=== PATIENT | male | born 1980 | race Caucasian/White ===

== ENCOUNTER 2021-01-18 11:39 | Inpatient (IN) ==
[2021-01-18] MEDS ORDERED: Dextrose Gel 15 GM/37.5 ML TUBE PO PRN ×2 (15:59)
[2021-01-18] MEDS ORDERED: *HR* Dextrose 50 % in Water (Vial) 50 ML VIAL IVP PRN (15:59)
[2021-01-18] MEDS ORDERED: D5% in Water 1,000 ML IVC PRN (15:59)
[2021-01-18] MEDS ORDERED: Ringers Solution, Lactated 1,000 ML IVC SCH (15:59)
[2021-01-18 16:23] LABS: Amorphous Sediment,Urine Few per hpf (None-Few); Bilirubin,Urine Negative (Negative); Blood,Urine Moderate (Negative); Clarity,Urine Turbid (Clear); Color,Urine Yellow (Yellow); Glucose,Urine (UA) Normal (Normal); Granular Casts,Urine Few per lpf (None Seen); Hyaline Casts,Urine Few per lpf (None Seen); Ketones,Urine 20 mg/dL (Negative); Leukocyte Esterase,Urine Negative (Negative); Mucus,Urine Few per lpf (None-Few); Nitrite,Urine Negative (Negative); PH,Urine 5.5 pH Units (5.0-8.0); Protein,Urine 50 mg/dL (Neg-Trace); RBC,Urine 0-3 per hpf (0-3); Specific Gravity,Urine 1.021 (1.010-1.025); Urobilinogen,Urine Normal (Normal); WBC,Urine 0-3 per hpf (0-3)
[2021-01-18 16:39] LABS: VBG HCO3 17 mEq/L (21-27); VBG PCO2 35 mmHg (41-51); VBG PH 7.28 pH Units (7.32-7.42); VBG PO2 76 mmHg (25-50)
[2021-01-18 16:44] LABS: Amphetamine Screen,Urine Positive ng/mL (Cutoff=1000); Barbiturate Screen,Urine Negative ng/mL (Cutoff=200); Benzodiazepines Screen,Urine Negative ng/mL (Cutoff=200); Cannabinoid Screen,Urine Negative ng/mL (Cutoff = 50); Cocaine Screen,Urine Negative ng/mL (Cutoff= 300); Opiate Screen,Urine Negative ng/mL (Cutoff=300); Phencyclidine Screen,Urine Negative ng/mL (Cutoff=25)
[2021-01-18] MEDS ORDERED: Ondansetron 4 MG/2 ML VIAL IVP PRN (16:49)
[2021-01-18] MEDS ORDERED: Naloxone 0.4 MG/ML INJ IVP PRN (16:49)
[2021-01-18] MEDS ORDERED: Vancomycin 1 EACH in 0.9 % Sodium Chloride 250 ML IVPB PRN (17:00)
[2021-01-18 17:10] LABS: Thyroid Stimulating Hormone 0.997 mcIU/mL (0.340-5.600)
[2021-01-18 17:14] LABS: Hepatitis B Surface Antigen Nonreactive (Nonreactive)
[2021-01-18] MEDS ORDERED: Sodium Bicarbonate 75 MEQ in 0.45 % Sodium Chloride 1,000 ML IVC SCH (17:30)
[2021-01-18 17:44] LABS: Hepatitis B Core IgM Nonreactive (Nonreactive)
[2021-01-18 17:45] LABS: Hepatitis A Antibody IgM Nonreactive (Nonreactive)
[2021-01-18] MEDS: Piperacillin/Tazobactam 3.375 GM in 0.9 % Sodium Chloride Mini Bag 100 ML IVPB SCH (17:58)
[2021-01-18 19:14] LABS: Hepatitis C Virus Antibody Reactive (Nonreactive)
[2021-01-19] MEDS: Piperacillin/Tazobactam 3.375 GM in 0.9 % Sodium Chloride Mini Bag 100 ML IVPB SCH ×3 (00:51→16:25)
[2021-01-19 09:14] LABS: Basophils % 0.2 %; Eosinophils # 0.1 K/mcL (0.0-0.6); Hematocrit 35.3 % (37.5-50.1); Hemoglobin 11.8 g/dL (12.9-16.9); Immature Granulocytes % 0.5 % (0-4); Lymphocytes # 1.3 K/mcL (0.6-4.6); Lymphocytes % 11.4 %; Mean Corpuscular HGB Conc 33.4 g/dL (31.6-35.5); Mean Corpuscular Hemoglobin 29.1 pg (28.0-33.3); Mean Corpuscular Volume 86.9 fL (83.0-100.0); Mean Platelet Volume 9.8 fL (9.4-12.4); Monocytes # 0.6 K/mcL (0.0-1.3); Monocytes % 5.5 %; Neutrophils # 9.1 K/mcL (1.6-8.9); Platelet Count 183 K/mcL (140-400); Red Blood Count 4.06 M/mcL (4.19-5.50); Red Cell Distribution Width 13.4 % (11.5-14.5); Segmented Neutrophils % 81.4 %; White Blood Count 11.2 K/mcL (4.3-11.1)
[2021-01-19 09:34] LABS: Alanine Aminotransferase 67 Units/L (7-52); Albumin 3.1 g/dL (3.5-5.7); Albumin/Globulin Ratio 1.1 (1.1-2.2); Alkaline Phosphatase 73 Units/L (34-104); Aspartate Amino Transferase 82 Units/L (13-39); BUN/Creatinine Ratio 22 (6-26); Bilirubin,Total 0.8 mg/dL (0.3-1.0); Blood Urea Nitrogen 32 mg/dL (6-20); Calcium 7.8 mg/dL (8.6-10.3); Carbon Dioxide 24 mEq/L (23-29); Chloride 107 mEq/L (98-107); Globulin 2.8 g/dL (2.4-3.5); Glucose 113 mg/dL (70-105); Magnesium 2.5 mg/dL (1.6-2.6); Osmolality,Calculated 292 (280-300); Potassium 3.7 mEq/L (3.5-5.1); Sodium 137 mEq/L (136-145); Total Protein 5.9 g/dL (6.4-8.9); eGFR For African Americans > 60 (> 60); eGFR For Non-African Americans 55 (> 60)
[2021-01-19 10:17] LABS: Uric Acid 9.1 mg/dL (2.3-7.6)
[2021-01-19 12:00] LABS: Sodium, Urine 16.1 mEq/L
[2021-01-19] MEDS: Sodium Bicarbonate 75 MEQ in 0.45 % Sodium Chloride 1,000 ML IVC SCH (12:29)
[2021-01-19] MEDS: Acetaminophen 325 MG TABLET PO PRN ×2 (12:41→21:22)
[2021-01-20] MEDS: Piperacillin/Tazobactam 3.375 GM in 0.9 % Sodium Chloride Mini Bag 100 ML IVPB SCH ×4 (00:25→23:36)
[2021-01-20 05:04] LABS: Alanine Aminotransferase 60 Units/L (7-52); Albumin 3.2 g/dL (3.5-5.7); Albumin/Globulin Ratio 1.1 (1.1-2.2); Alkaline Phosphatase 74 Units/L (34-104); Aspartate Amino Transferase 57 Units/L (13-39); BUN/Creatinine Ratio 16 (6-26); Bilirubin,Total 0.7 mg/dL (0.3-1.0); Blood Urea Nitrogen 18 mg/dL (6-20); Calcium 8.4 mg/dL (8.6-10.3); Carbon Dioxide 27 mEq/L (23-29); Chloride 109 mEq/L (98-107); Creatine Kinase 917 Units/L (30-223); Globulin 2.8 g/dL (2.4-3.5); Glucose 131 mg/dL (70-105); Osmolality,Calculated 294 (280-300); Potassium 4.3 mEq/L (3.5-5.1); Sodium 140 mEq/L (136-145); eGFR For African Americans > 60 (> 60); eGFR For Non-African Americans > 60 (> 60)
[2021-01-20 05:15] LABS: Hematocrit 36.1 % (37.5-50.1); Hemoglobin 11.9 g/dL (12.9-16.9); Mean Corpuscular Hemoglobin 28.8 pg (28.0-33.3); Mean Corpuscular Volume 87.4 fL (83.0-100.0); Platelet Count 204 K/mcL (140-400); Red Blood Count 4.13 M/mcL (4.19-5.50); Red Cell Distribution Width 13.5 % (11.5-14.5); White Blood Count 7.5 K/mcL (4.3-11.1)
[2021-01-20 05:16] LABS: Basophils % 0.4 %; Eosinophils # 0.1 K/mcL (0.0-0.6); Eosinophils % 1.5 %; Immature Granulocytes % 0.3 % (0-4); Lymphocytes # 1.3 K/mcL (0.6-4.6); Lymphocytes % 17.2 %; Monocytes # 0.6 K/mcL (0.0-1.3); Monocytes % 7.5 %; Neutrophils # 5.5 K/mcL (1.6-8.9); Segmented Neutrophils % 73.1 %
[2021-01-20] MEDS ORDERED: 0.9 % Sodium Chloride 2,000 ML IVC SCH (16:45)
[2021-01-20] MEDS: Acetaminophen 325 MG TABLET PO PRN (17:33)
[2021-01-20] MEDS: Gabapentin 100 MG CAPSULE PO SCH (20:31)
[2021-01-21] MEDS: Acetaminophen 325 MG TABLET PO PRN ×2 (01:25→07:49)
[2021-01-21 05:04] LABS: Basophils % 0.5 %; Eosinophils # 0.1 K/mcL (0.0-0.6); Eosinophils % 1.7 %; Hemoglobin 11.8 g/dL (12.9-16.9); Immature Granulocytes % 0.6 % (0-4); Lymphocytes # 1.6 K/mcL (0.6-4.6); Lymphocytes % 19.1 %; Mean Corpuscular HGB Conc 32.8 g/dL (31.6-35.5); Mean Corpuscular Hemoglobin 28.9 pg (28.0-33.3); Mean Platelet Volume 9.6 fL (9.4-12.4); Monocytes # 0.6 K/mcL (0.0-1.3); Monocytes % 7.6 %; Neutrophils # 5.8 K/mcL (1.6-8.9); Platelet Count 207 K/mcL (140-400); Red Blood Count 4.09 M/mcL (4.19-5.50); Red Cell Distribution Width 13.4 % (11.5-14.5); Segmented Neutrophils % 70.5 %; White Blood Count 8.3 K/mcL (4.3-11.1)
[2021-01-21 05:21] LABS: BUN/Creatinine Ratio 13 (6-26); Blood Urea Nitrogen 14 mg/dL (6-20); Carbon Dioxide 26 mEq/L (23-29); Chloride 110 mEq/L (98-107); Creatine Kinase 338 Units/L (30-223); Glucose 125 mg/dL (70-105); Osmolality,Calculated 292 (280-300); Potassium 4.3 mEq/L (3.5-5.1); Sodium 140 mEq/L (136-145); eGFR For African Americans > 60 (> 60); eGFR For Non-African Americans > 60 (> 60)
[2021-01-21] MEDS: Piperacillin/Tazobactam 3.375 GM in 0.9 % Sodium Chloride Mini Bag 100 ML IVPB SCH (07:49)
[2021-01-21] MEDS: Gabapentin 100 MG CAPSULE PO SCH (07:49)
[2021-01-21] MEDS ORDERED: Lactobacillus 1 EACH CAP.SPRINK PO SCH (10:00)
[2021-01-21 10:06] VITALS: BP 132/80; PULSE 56; TEMP 97.9; O2SAT 97
== END 2021-01-21 12:12 | disposition left against medical advice (07) | DRG 469 ==
LOC: 2NNU → 3ANU 01-19 12:27 → SUATTDRO 01-19 14:44
PROVIDERS: ADMIT Internal Medicine; ATTEND General Practice

== ENCOUNTER 2021-02-23 18:29 | Inpatient (IN) ==
[2021-02-23] MEDS ORDERED: *HR* LORazepam 2 MG/ML VIAL IVP ONE (19:39)
[2021-02-23 20:43] LABS: Bilirubin,Urine Negative (Negative); Blood,Urine Negative (Negative); Clarity,Urine Clear (Clear); Color,Urine Light-Yellow (Yellow); Glucose,Urine (UA) Normal (Normal); Ketones,Urine Negative (Negative); Leukocyte Esterase,Urine Negative (Negative); Nitrite,Urine Negative (Negative); PH,Urine 6.5 pH Units (5.0-8.0); Protein,Urine Negative (Neg-Trace); Specific Gravity,Urine 1.015 (1.010-1.025); Urobilinogen,Urine Normal (Normal)
[2021-02-23 20:46] LABS: Basophils # 0.1 K/mcL (0.0-0.2); Basophils % 0.1 %; Eosinophils % 0.1 %; Hematocrit 48.9 % (37.5-50.1); Hemoglobin 16.7 g/dL (12.9-16.9); Immature Granulocytes % 3.6 % (0-4); Lymphocytes # 1.7 K/mcL (0.6-4.6); Lymphocytes % 3.5 %; Mean Corpuscular HGB Conc 34.2 g/dL (31.6-35.5); Mean Corpuscular Hemoglobin 29.3 pg (28.0-33.3); Mean Corpuscular Volume 85.9 fL (83.0-100.0); Mean Platelet Volume 9.4 fL (9.4-12.4); Monocytes # 2.1 K/mcL (0.0-1.3); Monocytes % 4.3 %; Platelet Count 324 K/mcL (140-400); Red Blood Count 5.69 M/mcL (4.19-5.50); Segmented Neutrophils % 88.4 %
[2021-02-23 20:47] LABS: Eosinophils # 0.1 K/mcL (0.0-0.6); Neutrophils # 43.7 K/mcL (1.6-8.9)
[2021-02-23 20:51] LABS: White Blood Count 49.4 K/mcL (4.3-11.1)
[2021-02-23 20:54] LABS: Amphetamine Screen,Urine Positive ng/mL (Cutoff=1000); Barbiturate Screen,Urine Negative ng/mL (Cutoff=200); Benzodiazepines Screen,Urine Negative ng/mL (Cutoff=200); Cannabinoid Screen,Urine Positive ng/mL (Cutoff = 50); Cocaine Screen,Urine Negative ng/mL (Cutoff= 300); Opiate Screen,Urine Negative ng/mL (Cutoff=300); Phencyclidine Screen,Urine Negative ng/mL (Cutoff=25)
[2021-02-23 21:05] LABS: Platelet Estimate Normal (Normal); Reactive Lymphocytes Present (Not Present)
[2021-02-23] MEDS ORDERED: 0.9 % Sodium Chloride 1,000 ML ONE (21:06)
[2021-02-23] MEDS ORDERED: 0.9 % Sodium Chloride 1,000 ML IV ONE (22:29)
[2021-02-23 22:37] LABS: Albumin 4.6 g/dL (3.5-5.7); Albumin/Globulin Ratio 1.1 (1.1-2.2); Bilirubin,Total 0.5 mg/dL (0.3-1.0); Calcium 10.4 mg/dL (8.6-10.3); Globulin 4.2 g/dL (2.4-3.5); Magnesium 4.2 mg/dL (1.6-2.6); Potassium 3.6 mEq/L (3.5-5.1); Thyroid Stimulating Hormone 2.516 mcIU/mL (0.340-5.600); Total Protein 8.8 g/dL (6.4-8.9); Troponin I 0.58 ng/mL (< 0.04)
[2021-02-24] MEDS ORDERED: Naloxone 0.4 MG/ML INJ IVP PRN (00:16)
[2021-02-24] MEDS ORDERED: Ondansetron 4 MG/2 ML VIAL IVP PRN (00:16)
[2021-02-24] MEDS ORDERED: 0.9 % Sodium Chloride 1,000 ML IVC SCH (00:30)
[2021-02-24 01:29] LABS: Basophils % 0.2 %
[2021-02-24 01:31] LABS: Basophils # 0.1 K/mcL (0.0-0.2); Hematocrit 41.6 % (37.5-50.1); Hemoglobin 13.8 g/dL (12.9-16.9); Immature Granulocytes % 1.8 % (0-4); Lymphocytes # 1.7 K/mcL (0.6-4.6); Mean Corpuscular HGB Conc 33.2 g/dL (31.6-35.5); Mean Corpuscular Hemoglobin 29.1 pg (28.0-33.3); Mean Corpuscular Volume 87.8 fL (83.0-100.0); Mean Platelet Volume 9.6 fL (9.4-12.4); Monocytes # 0.9 K/mcL (0.0-1.3); Monocytes % 2.6 %; Platelet Count 238 K/mcL (140-400); Red Blood Count 4.74 M/mcL (4.19-5.50); Segmented Neutrophils % 90.4 %
[2021-02-24 01:34] LABS: Neutrophils # 31.5 K/mcL (1.6-8.9); White Blood Count 34.8 K/mcL (4.3-11.1)
[2021-02-24 01:48] LABS: Albumin 3.8 g/dL (3.5-5.7); Albumin/Globulin Ratio 1.1 (1.1-2.2); Bilirubin,Total 0.5 mg/dL (0.3-1.0); Calcium 8.5 mg/dL (8.6-10.3); Globulin 3.4 g/dL (2.4-3.5); Potassium 4.2 mEq/L (3.5-5.1); Total Protein 7.2 g/dL (6.4-8.9)
[2021-02-24] MEDS ORDERED: *HR* Heparin 5,000 UNIT/ML VIAL IVP PRN ×2 (01:48)
[2021-02-24] MEDS ORDERED: *HR* Heparin 5,000 UNIT/ML VIAL IVP ONE (01:48)
[2021-02-24] MEDS ORDERED: Heparin 25,000UNIT/250ML 1/2NS 25,000 UNIT/250 ML IV.SOLN IVC SCH (02:00)
[2021-02-24] MEDS ORDERED: Aspirin 81 MG TAB.CHEW PO SCH (02:15)
[2021-02-24 02:41] LABS: Mean Platelet Volume 9.8 fL (9.4-12.4)
[2021-02-24 02:42] LABS: Hematocrit 42.9 % (37.5-50.1); Hemoglobin 14.1 g/dL (12.9-16.9); Mean Corpuscular HGB Conc 32.9 g/dL (31.6-35.5); Mean Corpuscular Hemoglobin 29.3 pg (28.0-33.3); Platelet Count 227 K/mcL (140-400); Red Blood Count 4.82 M/mcL (4.19-5.50)
[2021-02-24] MEDS: Ringers Solution, Lactated 1,000 ML IVC SCH ×6 (02:42→23:55)
[2021-02-24] MEDS: *HR* LORazepam 2 MG/ML VIAL IVP PRN ×4 (02:45→22:22)
[2021-02-24 02:46] LABS: White Blood Count 32.5 K/mcL (4.3-11.1)
[2021-02-24 02:56] LABS: Heparin anti-factor XA UFH < 0.04 IU/mL (0.30-0.70)
[2021-02-24 02:57] LABS: INR 1.2; Prothrombin Time 14.2 Seconds (9.4-12.1)
[2021-02-24] MEDS: Aspirin 81 MG TAB.CHEW PO SCH (03:05)
[2021-02-24 03:35] LABS: Adenovirus F 40/41 PCR Not detected (Not detect); Astrovirus PCR Not detected (Not detect); C.difficile Toxin A/B Gene PCR Not detected (Not detect); Campylobacter by PCR Not detected (Not detect); Cryptosporidium by PCR Not detected (Not detect); Cyclospora cayetanensis PCR Not detected (Not detect); E. coli O157 by PCR Not detected (Not detect); Entamoeba histolytica PCR Not detected (Not detect); Enteroaggregative E.coli(EAEC) Not detected (Not detect); Enteropathogenic E.coli(EPEC) Not detected (Not detect); Enterotoxigenic E.coli (ETEC) Not detected (Not detect); Giardia lamblia PCR Not detected (Not detect); Norovirus GI/GII PCR Not detected (Not detect); Plesiomonas shigelloides PCR Not detected (Not detect); Rotavirus A PCR Not detected (Not detect); Salmonella PCR Not detected (Not detect); Sapovirus PCR Not detected (Not detect); Shig/EnteroinvasiveE coli EIEC Not detected (Not detect); Shigalike tox-prod E coli STEC Not detected (Not detect); Vibrio PCR Not detected (Not detect); Vibrio cholerae PCR Not detected (Not detect); Yersinia enterocolitica PCR Not detected (Not detect)
[2021-02-24] MEDS ORDERED: Perflutren Lipid Microsphere 1.3 ML in 0.9 % Sodium Chloride 8.7 ML IVP PRN (05:06)
[2021-02-24] MEDS: Vancomycin Oral Soln 125 MG/2.5 ML UDC PO SCH ×2 (05:42→10:34)
[2021-02-24] MEDS: Piperacillin/Tazobactam 3.375 GM in 0.9 % Sodium Chloride Mini Bag 100 ML IVPB SCH ×3 (08:56→23:53)
[2021-02-24 09:27] LABS: Troponin I 0.85 ng/mL (< 0.04)
[2021-02-24] MEDS: Nicotine 14 MG PATCH.TD24 TD SCH (11:06)
[2021-02-24 12:57] LABS: Sodium, Urine 38.6 mEq/L
[2021-02-24] MEDS ORDERED: Benzonatate 100 MG CAPSULE PO PRN (16:20)
[2021-02-24] MEDS ORDERED: Ipratropium/Albuterol Neb 3 ML IH PRN (16:20)
[2021-02-24] MEDS: *HR* Heparin 5,000 UNIT/ML VIAL SQ SCH (17:10)
[2021-02-24 18:12] LABS: Hepatitis B Surface Antigen Nonreactive (Nonreactive)
[2021-02-24 18:39] LABS: Hepatitis B Core IgM Nonreactive (Nonreactive)
[2021-02-24 18:46] LABS: Hepatitis A Antibody IgM Nonreactive (Nonreactive)
[2021-02-24 20:22] LABS: Hepatitis C Virus Antibody Reactive (Nonreactive)
[2021-02-24] MEDS: Chlorhexidine Rinse 15 ML MOUTHWASH MM SCH (22:14)
[2021-02-24] MEDS: Lactobacillus 1 EACH CAP.SPRINK PO SCH (22:14)
[2021-02-24] MEDS: Budesonide/Formoterol 160/4.5 1 PUFF INH IH SCH (22:33)
[2021-02-24] MEDS: Ipratropium/Albuterol Neb 3 ML IH SCH (22:34)
[2021-02-25 03:21] LABS: Basophils % 0.3 %; Eosinophils # 0.2 K/mcL (0.0-0.6); Eosinophils % 1.4 %; Hematocrit 37.9 % (37.5-50.1); Hemoglobin 12.9 g/dL (12.9-16.9); Immature Granulocytes % 0.4 % (0-4); Lymphocytes # 1.7 K/mcL (0.6-4.6); Lymphocytes % 15.3 %; Mean Corpuscular Hemoglobin 29.4 pg (28.0-33.3); Mean Corpuscular Volume 86.3 fL (83.0-100.0); Mean Platelet Volume 10.2 fL (9.4-12.4); Monocytes # 0.4 K/mcL (0.0-1.3); Monocytes % 3.5 %; Neutrophils # 8.8 K/mcL (1.6-8.9); Platelet Count 191 K/mcL (140-400); Red Blood Count 4.39 M/mcL (4.19-5.50); Red Cell Distribution Width 14.1 % (11.5-14.5); Segmented Neutrophils % 79.1 %
[2021-02-25 03:22] LABS: White Blood Count 11.1 K/mcL (4.3-11.1)
[2021-02-25 03:29] LABS: INR 1.2; Prothrombin Time 14.1 Seconds (9.4-12.1)
[2021-02-25 03:38] LABS: Bilirubin,Total 0.5 mg/dL (0.3-1.0); Calcium 8.1 mg/dL (8.6-10.3); Globulin 2.9 g/dL (2.4-3.5); Magnesium 2.6 mg/dL (1.6-2.6); Potassium 4.1 mEq/L (3.5-5.1); Total Protein 5.9 g/dL (6.4-8.9)
[2021-02-25] MEDS: Ipratropium/Albuterol Neb 3 ML IH SCH ×4 (03:39→23:01)
[2021-02-25] MEDS: *HR* LORazepam 2 MG/ML VIAL IVP PRN ×4 (04:17→23:36)
[2021-02-25] MEDS: *HR* Heparin 5,000 UNIT/ML VIAL SQ SCH ×2 (06:54→17:33)
[2021-02-25] MEDS: Chlorhexidine Rinse 15 ML MOUTHWASH MM SCH ×2 (10:00→20:15)
[2021-02-25] MEDS: Aspirin 81 MG TAB.CHEW PO SCH (10:00)
[2021-02-25] MEDS: Lactobacillus 1 EACH CAP.SPRINK PO SCH ×2 (10:01→20:15)
[2021-02-25] MEDS: Piperacillin/Tazobactam 3.375 GM in 0.9 % Sodium Chloride Mini Bag 100 ML IVPB SCH ×3 (10:02→23:36)
[2021-02-25] MEDS: Nicotine 14 MG PATCH.TD24 TD SCH (10:02)
[2021-02-25] MEDS: Multivit/Ca/Min/Fe/FA 1 TAB TABLET PO SCH (10:03)
[2021-02-25] MEDS: Ringers Solution, Lactated 1,000 ML IVC SCH ×2 (10:18→20:17)
[2021-02-25] MEDS: Budesonide/Formoterol 160/4.5 1 PUFF INH IH SCH ×2 (10:41→23:01)
[2021-02-25] MEDS ORDERED: cloNIDine HCL 0.1 MG TABLET PO ONE (12:17)
[2021-02-26] MEDS: Ringers Solution, Lactated 1,000 ML IVC SCH ×2 (02:41→05:22)
[2021-02-26] MEDS: Ipratropium/Albuterol Neb 3 ML IH SCH ×2 (04:15→10:48)
[2021-02-26 04:59] LABS: Basophils % 0.3 %; Eosinophils # 0.1 K/mcL (0.0-0.6); Eosinophils % 0.9 %; Hematocrit 34.5 % (37.5-50.1); Hemoglobin 11.6 g/dL (12.9-16.9); Immature Granulocytes % 0.3 % (0-4); Lymphocytes # 1.8 K/mcL (0.6-4.6); Mean Corpuscular HGB Conc 33.6 g/dL (31.6-35.5); Mean Corpuscular Hemoglobin 29.5 pg (28.0-33.3); Mean Corpuscular Volume 87.8 fL (83.0-100.0); Mean Platelet Volume 10.3 fL (9.4-12.4); Monocytes # 0.5 K/mcL (0.0-1.3); Monocytes % 6.9 %; Neutrophils # 4.2 K/mcL (1.6-8.9); Platelet Count 149 K/mcL (140-400); Red Blood Count 3.93 M/mcL (4.19-5.50); Red Cell Distribution Width 14.4 % (11.5-14.5); Segmented Neutrophils % 64.6 %; White Blood Count 6.5 K/mcL (4.3-11.1)
[2021-02-26 05:11] LABS: INR 1.1; Prothrombin Time 12.5 Seconds (9.4-12.1)
[2021-02-26 05:18] LABS: Alanine Aminotransferase 297 Units/L (7-52); Albumin 3.1 g/dL (3.5-5.7); Albumin/Globulin Ratio 1.1 (1.1-2.2); Alkaline Phosphatase 138 Units/L (34-104); Aspartate Amino Transferase 136 Units/L (13-39); BUN/Creatinine Ratio 11 (6-26); Bilirubin,Total 0.3 mg/dL (0.3-1.0); Blood Urea Nitrogen 16 mg/dL (6-20); Calcium 9.1 mg/dL (8.6-10.3); Carbon Dioxide 20 mEq/L (23-29); Chloride 114 mEq/L (98-107); Globulin 2.8 g/dL (2.4-3.5); Glucose 120 mg/dL (70-105); Magnesium 1.6 mg/dL (1.6-2.6); Osmolality,Calculated 290 (280-300); Phosphorous 3.6 mg/dL (2.7-4.5); Potassium 4.1 mEq/L (3.5-5.1); Sodium 139 mEq/L (136-145); Total Protein 5.9 g/dL (6.4-8.9); eGFR For African Americans > 60 (> 60); eGFR For Non-African Americans 52 (> 60)
[2021-02-26] MEDS: *HR* Heparin 5,000 UNIT/ML VIAL SQ SCH (05:22)
[2021-02-26] MEDS: *HR* LORazepam 2 MG/ML VIAL IVP PRN (05:22)
[2021-02-26] MEDS: Chlorhexidine Rinse 15 ML MOUTHWASH MM SCH (08:14)
[2021-02-26] MEDS: Lactobacillus 1 EACH CAP.SPRINK PO SCH (08:15)
[2021-02-26] MEDS: Nicotine 14 MG PATCH.TD24 TD SCH (08:15)
[2021-02-26] MEDS: Multivit/Ca/Min/Fe/FA 1 TAB TABLET PO SCH (08:15)
[2021-02-26] MEDS: Piperacillin/Tazobactam 3.375 GM in 0.9 % Sodium Chloride Mini Bag 100 ML IVPB SCH (08:23)
[2021-02-26] MEDS ORDERED: Aspirin 81 MG TAB.CHEW PO SCH (09:00)
[2021-02-26] MEDS: Budesonide/Formoterol 160/4.5 1 PUFF INH IH SCH (10:47)
[2021-02-26 12:16] VITALS: BP 120/72; PULSE 127; TEMP 97.7; O2SAT 100
[2021-02-28 13:39] LABS: HCV Quant Log 7.43 log IU/mL
[2021-03-01 06:50] LABS: HCV Quant Interpretation DETECTED (Not Detected)
== END 2021-02-26 14:16 | disposition home or self-care (01) | DRG 720 ==
LOC: EMEROOARM 18:29 → 2ANU 18:29 → SUATTDRO 23:14 → OBSVTOIN 23:14 → 2ANU 23:40
PROVIDERS: ADMIT Internal Medicine; ATTEND Internal Medicine